=== PATIENT | female | born 2000 | race Two or more races ===

== ENCOUNTER 2021-02-02 06:05 | Day surgery (SDC) | payer OTHER ==
[2021-02-02] MEDS ORDERED: ULTRACET PO (12:00)
== END 2021-02-02 19:30 | disposition home or self-care (01) ==
LOC: CIR.AMB 06:05
PROVIDERS: ATTEND Surgery
DX: L05.01 Pilonidal cyst with abscess (principal); Z20.822 Contact with and (suspected) exposure to COVID-19

== ENCOUNTER 2021-02-05 15:59 | Emergency (ER) | payer OTHER ==
[~2021-02-05] VITALS: Ht 160 cm; Wt 47.2 kg
[~2021-02-05 15:59] MED LIST: ULTRACET PO
== END 2021-02-05 18:49 | disposition home or self-care (01) ==
LOC: ER 15:59 → EMR PED 16:14
DX: L76.22 Postprocedural hemorrhage of skin and subcutaneous tissue following other procedure (principal); Y65.8 Other specified misadventures during surgical and medical care; Y92.810 Car as the place of occurrence of the external cause